=== PATIENT | female | born 2000 | race Caucasian/White ===

== ENCOUNTER 2024-05-09 00:18 | Emergency (ER) | payer BC, SELFPAY ==
[2024-05-09 00:20] VITALS: BP 117/78
[2024-05-09 00:23] VITALS: BP 117/78
--- NOTE | 2024-05-09 00:25 | ED.GENMED ---
History of Present Illness
General
Chief Complaint: Alcohol Problem
Source: patient and other (Friend)
Exam Limitations: clinical condition
Time Seen by Provider: 05/09/24 00:22
History of Present Illness
History of Present Illness:
See MDM
Past History
Past History
ED Past Medical History: Other (9-month history of 'abdominal issues' intermittent vomiting, weight loss, unremarkable GI evaluation and symptoms resolved with a medication she has since discontinued.)
ED Past Surgical History: None
Social History
Tobacco: Non-smoker
Alcohol: None
Personal: Single
Living: with family
Family History
Family History: Other (Noncontributory)
Phy Exam
Physical Exam
Physical Exam:
See MDM
Scores
Withdrawal Assessment of Alcohol
Withdrawal Assessment Completed?: Not applicable
Course
Orders/Labs/Results
Orders:
Orders
05/09/24 00:25
Ondansetron Orally Disint [Zofran Odt (Orally Disintegrating)] 4 mg PO NOW STA
05/09/24 05:00
Ibuprofen [Motrin] 600 mg PO NOW STA
Vital Signs
Initial and Last Documented VS:
Initial Vital Signs
Temp Pulse Resp BP Pulse Ox
97.5 F 81 16 117/78 99
05/09/24 00:20 05/09/24 00:20 05/09/24 00:20 05/09/24 00:20 05/09/24 00:20
Last Documented Vital Signs
Temp Pulse Resp BP Pulse Ox
97.5 F 75 15 103/70 96
05/09/24 00:20 05/09/24 04:45 05/09/24 04:45 05/09/24 04:00 05/09/24 04:45
MDM/Problems Addressed
Differential Diagnosis Includes:
HPI and MDM Narrative:
23-year-old female presenting with her friend for evaluation of alcohol intoxication. They were out at the bar and the friend states that the patient became extremely drunk. She is unconcerned about any sort concomitant intoxication. On arrival,
patient is intoxicated but eyes were open and she is following commands. Will give Zofran ODT and continue to monitor. No evidence of trauma noted
Physical exam
General: Intoxicated but awake and alert
HEENT: protecting airway
Neck: appears supple
CV: No evidence of cyanosis
Resp: No accessory muscle use
Abd: Non-distended
Extremities: No deformities
Neuro: alert. No focal deficits
Psych: Flat affect
Skin: Intact
Problems Addressed including Acute and Chronic Conditions affecting care:
1. Alcohol intoxication
Acuity: acute
Prognosis: stable
Details: Will give Zofran ODT as prophylaxis and will continue to monitor
2. [ ]
Acuity: acute
Prognosis: stable
Details:
3. [ ]
Acuity: acute
Prognosis: stable
Details:
4. [ ]
Acuity: acute
Prognosis: stable
Details:
5. [ ]
Acuity:
Prognosis:
Details:
Updates
Differential Diagnosis (but not limited to): Alcohol intoxication, drug abuse
Testing considered: UDS
Drug therapy (if applicable): OTC meds, please see d/c instruction regarding Rx drugs
Amount and/or Complexity of Data Reviewed
Clinical info obtained from: Patient and friend
External data reviewed: N/A
Labs I independently reviewed (but not limited to): N/A
Radiology: N/A
Pulse Ox: not hypoxic
EKG independently reviewed: N/A
Rug Sample Beveler: N/A
Critical Care: N/A
Risk of Complication:
Social Determinants of health: Good social support
Discussed with other providers: N/A
Escalation of Care includes Admit/Obs: After being observed in the Emergency Department, pt stable for discharge.
Occasional wrong word or 'sound a like' substitutions may have occurred due to the inherent limitations of voice recognition software. Read the chart carefully and recognize, using context, where substitutions have occurred.
*Critical Care Note
Total Time (30-74mins, 75-104mins- exclusive of procedures): Not Applicable
ED Attending Note
-
Portions of this chart may have been created with voice recognition software.� Occasional wrong word or��sound alike� substitutions may have occurred due to the inherent limitations of voice recognition software.
Discharge Plan
Departure
Patient Disposition: Home (Routine Discharge)
Date of Disposition: 05/09/24
Time of Disposition: 05:01
Patient with high blood pressure during this ER visit?: No
Discharge Problem:
Alcohol intoxication
Prescriptions:
New
ondansetron 4 mg Tablet,Disintegrating
4 mg PO BIDPRN PRN (Reason: nausea/vomiting) Qty: 10 0RF
No Action
ketorolac 10 MG tablet
10 mg PO QID Qty: 16 0RF
oxycodone-acetaminophen 5 MG/325 MG tablet
1 tab PO Q4HPRN PRN (Reason: pain) Qty: 15 0RF
ondansetron 4 MG tablet,disintegrating
4 mg PO QIDPRN PRN (Reason: nausea/vomiting) Qty: 20 0RF
Referrals:
Danita Carr DO [Family Provider] -
Activity Restrictions/Additional Instructions:
Please return for any worsening symptoms.
You may return at any time if you have further concerns.
Please follow up with your doctor at the first available appointment, preferably this week.
Thank you for choosing [facility].
Interventions
Interventions:
*Risk Screen - Suicide Last Done: 05/09/24 00:20
*General Assessment Last Done: 05/09/24 00:20
*Neglect/Abuse Screening Last Done: 05/09/24 00:20
ED- Fall Risk Assessment Last Done: 05/09/24 01:38
*ED COVID-19 Vaccine History Last Done: 05/09/24 00:20
ED- Neurological Assessment Last Done: 05/09/24 01:38
ED-Psychological Assessment Last Done: 05/09/24 01:38
Discharge Date and Time
Print Language: UKRAINIAN
[2024-05-09] MEDS: ZOFRAN ODT (ORALLY DISINTEGRATING) 4 MG PO (00:29)
[2024-05-09 01:00] VITALS: BP 101/70
--- NOTE | 2024-05-09 01:40 | EDRN ---
mom ( cheli): [phone], went to sleep in the car
[2024-05-09 02:00] VITALS: BP 100/64
[2024-05-09 03:00] VITALS: BP 93/58
[2024-05-09 04:00] VITALS: BP 103/70
--- NOTE | 2024-05-09 04:11 | EDRN ---
Patient resting comfortably, VSS, will continue to monitor
--- NOTE | 2024-05-09 04:59 | EDRN ---
Awake and ambulatory to the restroom, informed Dr. Ferrer, patient ready to go home.
[2024-05-09] MEDS: MOTRIN 600 MG PO (05:11)
--- NOTE | 2024-05-09 05:15 | EDRN ---
Gave patient some paper scrubs to wear home, mom going to take her home, was able to ambulate without difficulty
== END 2024-05-09 05:16 | disposition home or self-care (01) ==
LOC: EMR 00:18
PROVIDERS: EMERGENCY PHYSICIAN Student in an Organized Health Care Education/Training Program; FAMILY PHYSICIAN Family Medicine
DX: F10.129 Alcohol abuse with intoxication, unspecified (principal)
CPT/HCPCS: 99283